=== PATIENT | female | born 2000 | race Caucasian/White ===

== ENCOUNTER 2021-01-14 18:45 | Emergency (ER) | payer OTHER ==
[~2021-01-14 18:45] MED LIST: BUSPAR5 MG PO; COLACE100 MG PO; DICLEGIS DR 101 EACH PO; FEOSOL325 MG PO; IBUPROFEN800 MG PO; LEXAPRO20 MG PO; PERCOCET 5-3251 EACH PO; PRENATAL FORMU1 EACH PO; ZOFRAN8 MG PO
== END 2021-01-14 22:19 | disposition home or self-care (01) ==
LOC: FER 18:45
DX: R51.9 Headache, unspecified (principal); R20.2 Paresthesia of skin; I10 Essential (primary) hypertension; F17.290 Nicotine dependence, other tobacco product, uncomplicated
CPT/HCPCS: 70450